=== PATIENT | female | born 1965 | race American Indian/Alaskan Native ===

== ENCOUNTER 2019-06-01 13:27 | Emergency (ER) | payer SELFPAY ==
--- NOTE | 2019-06-01 13:39 | Emergency Department Report ---
Blank Doc - Documentation Documentation: This is a 54-year-old female that presents with visual and audio hallucinations and HI. This initial assessment/diagnostic orders/clinical plan/treatment(s) is/are subject to change based on patient's health status, clinical progression and re- assessment by fellow clinical providers in the ED. Further treatment and workup at subsequent clinical providers discretion. Patient/guardians urged not to elope from the ED as their condition may be serious if not clinically assessed and managed. Initial orders include: 1- Patient sent to MAIN ED for further evaluation and treatment 2- promotions executive producer was notified to have patient be brought back [facility]. 3- RN was notified to keep patient as close range and observation until room available 4- Patient presents with substantial risk of imminent harm to self, appears to be so unable to care for his/her own physical health and safety as to create an imminently life-endangering crisis, and has committed/expressed life endangering crisis to self. Due to this and other complaints, patient is put on 1013.
[2019-06-01 14:18] LABS: Basophils # (Auto) 0.1 K/mm3 (0.0-0.1); Eosinophils # (Auto) 0.1 K/mm3 (0.0-0.4); Eosinophils % (Auto) 1.1 % (0.0-4.3); Hematocrit 43.8 % (30.3-42.9); Hemoglobin 14.6 gm/dl (10.1-14.3); Lymphocytes # (Auto) 2.1 K/mm3 (1.2-5.4); Lymphocytes % (Auto) 38.2 % (13.4-35.0); Mean Corpuscular HGB Conc 33 % (30-34); Mean Corpuscular Volume 94 fl (79-97); Monocytes # (Auto) 0.3 K/mm3 (0.0-0.8); Monocytes % (Auto) 5.5 % (0.0-7.3); Platelet Count 267 K/mm3 (140-440); Red Blood Count 4.67 M/mm3 (3.65-5.03); Red Cell Distribution Width 13.8 % (13.2-15.2)
[2019-06-01 14:37] LABS: BUN/Creatinine Ratio 13; Blood Urea Nitrogen 9 mg/dL (7-17); Calcium 9.9 mg/dL (8.4-10.2); Hemolysis Index 15
--- NOTE | 2019-06-01 15:28 | Emergency Department Report ---
<CELINASERA - Last Filed: 06/01/19 18:44> ED Psych HPI - General Chief Complaint: Psych Stated Complaint: HEARING VOICES/ALCOHOL Time Seen by Provider: 06/01/19 13:38 - Related Data Home Medications Medication Instructions Recorded Confirmed Last Taken No Known Home Medications [No 06/01/19 06/01/19 Unknown Reported Home Medications] Allergies Allergy/AdvReac Type Severity Reaction Status Date / Time No Known Allergies Allergy Unverified 06/01/19 13:34 ED Past Medical Hx - Medications Home Medications: Home Medications Medication Instructions Recorded Confirmed Last Taken Type No Known Home Medications [No 06/01/19 06/01/19 Unknown History Reported Home Medications] ED Medical Decision Making - Lab Data Result diagrams: 06/01/19 14:00 06/01/19 14:00 - Medical Decision Making UDS screen +marijuana. Suspected contaminated urine sample. However, will preemptively cover for UTI. Cephalexin ordered. Mrs. Ortega is medically clear for psychiatric care. ED Disposition Clinical Impression: Acute psychosis, Schizophrenia, Alcohol abuse, Medical clearance for psychiatric admission, Urine WBC increased Disposition: DC/TX-65 PSY HOSP/PSY UNIT Is pt being admited?: No Does the pt Need Aspirin: No Condition: Stable <MALVIN RON - Last Filed: 06/02/19 15:37> ED Psych HPI - General Source: patient Mode of arrival: Ambulatory Limitations: No Limitations - History of Present Illness Initial Comments: 54-year-old female with a past medical history schizophrenia and hypertension presents to the hospital complaints of auditory or visual hallucinations and daily alcohol use. Patient is not currently on any medication. She admits to beer intake daily I states she does have tremors at times. Last intake was this morning. Patient states he smokes marijuana but denies other drug use. Patient denies suicidal ideation when questioned. 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 Patient complains of mild epigastric discomfort withou t nausea, vomiting, melena, or hematochezia. ED Review of Systems ROS: Stated complaint: HEARING VOICES/ALCOHOL Other details as noted in HPI Comment: All other systems reviewed and negative ED Past Medical Hx - Past Medical History Previous Medical History?: Yes Hx Hypertension: Yes Hx Psychiatric Treatment: Yes (schizophrenia) - Surgical History Past Surgical History?: No - Social History Smoking Status: Current Every Day Smoker Substance Use Type: Alcohol ED Physical Exam - General Limitations: No Limitations - Other Other exam information: General: No limitations, patient is alert in no acute distress Head exam: Atraumatic, normocephalic Eyes exam: pupils equal reactive to light, extraocular movements intact ENT: Moist mucous membrane, normal oropharynx Neck exam: Normal inspection, full range of motion, no meningismus nontender Respiratory exam: Clear to auscultation bilateral, no wheezes, rales, crackles Cardiovascular: Normal rate and rhythm, normal heart sounds Abdomen: Soft, nondistended, mild epigastric tenderness, with normal bowel sounds, no rebound, or guarding Extremity: Full range of motion normal inspection no deformity Back: Normal Inspection, full range of motion, no tenderness Neurologic: Alert, oriented x3, cranial nerves intact, no motor or sensory deficit Psychiatric: normal affect, normal mood Skin: Warm, dry, intact ED Course Vital Signs 06/01/19 06/01/19 06/02/19 13:37 19:34 00:00 Temperature 98.5 F 98.2 F 98.1 F Pulse Rate 81 62 71 Respiratory 20 18 18 Rate Blood Pressure 121/80 Blood Pressure 144/91 129/83 [Left] O2 Sat by Pulse 97 100 100 Oximetry 06/02/19 08:00 Temperature 98.3 F Pulse Rate 60 Respiratory 16 Rate Blood Pressure Blood Pressure 129/76 [Left] O2 Sat by Pulse 99 Oximetry ED Medical Decision Making - Lab Data Result diagrams: 06/01/19 14:00 06/01/19 14:00 Lab Results 06/01/19 06/01/19 06/01/19 Range/Units 14:00 14:00 14:00 WBC 5.5 (4.5-11.0) K/mm3 RBC 4.67 (3.65-5.03) M/mm3 Hgb 14.6 H (10.1-14.3) gm/dl Hct 43.8 H (30.3-42.9) % MCV 94 (79-97) fl MCH 31 (28-32) pg MCHC 33 (30-34) % RDW 13.8 (13.2-15.2) % Plt Count 267 (140-440) K/mm3 Lymph % (Auto) 38.2 H (13.4-35.0) % [place] % (Auto) 5.5 (0.0-7.3) % Eos % (Auto) 1.1 (0.0-4.3) % Baso % (Auto) 1.0 (0.0-1.8) % Lymph # 2.1 (1.2-5.4) K/mm3 [place] # 0.3 (0.0-0.8) K/mm3 Eos # 0.1 (0.0-0.4) K/mm3 Baso # 0.1 (0.0-0.1) K/mm3 Seg Neutrophils % 54.2 (40.0-70.0) % Seg Neutrophils # 3.0 (1.8-7.7) K/mm3 Sodium 140 (137-145) mmol/L Potassium 4.2 (3.6-5.0) mmol/L Chloride 102.4 (98-107) mmol/L Carbon Dioxide 26 (22-30) mmol/L Anion Gap 16 mmol/L BUN 9 (7-17) mg/dL Creatinine 0.7 (0.7-1.2) mg/dL Estimated GFR > 60 ml/min BUN/Creatinine Ratio 13 % Glucose 98 (65-100) mg/dL Calcium 9.9 (8.4-10.2) mg/dL Salicylates < 0.3 L (2.8-20.0) mg/dL Acetaminophen (10.0-30.0) ug/mL Plasma/Serum Alcohol (0-0.07) % 06/01/19 06/01/19 Range/Units 14:00 14:00 WBC (4.5-11.0) K/mm3 RBC (3.65-5.03) M/mm3 Hgb (10.1-14.3) gm/dl Hct (30.3-42.9) % MCV (79-97) fl MCH (28-32) pg MCHC (30-34) % RDW (13.2-15.2) % Plt Count (140-440) K/mm3 Lymph % (Auto) (13.4-35.0) % [place] % (Auto) (0.0-7.3) % Eos % (Auto) (0.0-4.3) % Baso % (Auto) (0.0-1.8) % Lymph # (1.2-5.4) K/mm3 [place] # (0.0-0.8) K/mm3 Eos # (0.0-0.4) K/mm3 Baso # (0.0-0.1) K/mm3 Seg Neutrophils % (40.0-70.0) % Seg Neutrophils # (1.8-7.7) K/mm3 Sodium (137-145) mmol/L Potassium (3.6-5.0) mmol/L Chloride (98-107) mmol/L Carbon Dioxide (22-30) mmol/L Anion Gap mmol/L BUN (7-17) mg/dL Creatinine (0.7-1.2) mg/dL Estimated GFR ml/min BUN/Creatinine Ratio % Glucose (65-100) mg/dL Calcium (8.4-10.2) mg/dL Salicylates (2.8-20.0) mg/dL Acetaminophen < 5.0 L (10.0-30.0) ug/mL Plasma/Serum Alcohol 0.04 (0-0.07) % - Medical Decision Making Mental health consultation. 1013 and transfer forms signed. Awaiting urine production the medical clearance. Inpatient may be isolated for mental health for possible inpatient treatment and/or initiation of management in the ED. - Differential Diagnosis suicidal, homicidal, psychosis, drug abuse, alcohol abuse Critical Care Time: No Critical care attestation.: If time is entered above; I have spent that time in minutes in the direct care of this critically ill patient, excluding procedure time. ED Disposition Is pt being admited?: No Does the pt Need Aspirin: No Time of Disposition: 15:37
[2019-06-01 17:15] LABS: Amphetamine Screen,Urine PRESUMPTIVE NEGATIVE; Benzodiazepines Screen,Urine PRESUMPTIVE NEGATIVE; Bilirubin,Urine NEG (Negative); Blood,Urine NEG (Negative); Cocaine Screen,Urine PRESUMPTIVE NEGATIVE; Color,Urine Yellow (Yellow); Methadone Screen,Urine PRESUMPTIVE NEGATIVE; Mucus,Urine FEW /HPF; Opiate Screen,Urine PRESUMPTIVE NEGATIVE; Protein,Urine <15 mg/dL mg/dL (Negative)
[2019-06-01 17:57] LABS: Cannabinoid Screen,Urine PRESUMPTIVE POSITIVE
[2019-06-01] MEDS: KEFLEX PO SCH (22:18)
--- NOTE | 2019-06-02 09:32 | Consultation ---
History of Present Illness - Reason for Consult Consult date: 06/02/19 Reason for consult: Mental Health Evaluation Requesting physician: MALVIN RON - Chief Complaint Chief complaint: '"I created V[employer]'" - History of Present Psychiatric Illness 54 y.o. AA female who presented to the ER for acute psychosis. Today the patient was calm, but tangent during the assessment. She stated that she was brought in to the ER by her daughter. 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 She stated that [facility] is aware of what is going on as well. She stated that the TV tells her things about [employer]. She appeared to be responding to some type of stimuli throughout the interview. She denies SI/HI's and VH's. She denies erratic sleep and a poor appetite. She would not confirm or deny having a drinking issue (etoh) when asked. She was positive for marijuana with a blood alcohol level of 0.04. Medications and Allergies Allergies Allergy/AdvReac Type Severity Reaction Status Date / Time No Known Allergies Allergy Unverified 06/01/19 13:34 Home Medications Medication Instructions Recorded Confirmed Last Taken Type No Known Home Medications [No 06/01/19 06/01/19 Unknown History Reported Home Medications] Active Meds: Active Medications Cephalexin (Keflex) 500 mg PO QID LAURA Last Admin: 06/01/19 22:18 Dose: 500 mg Documented by: Past psychiatric history - Past Medical History Past Medical History: No medical history Past Surgical History: No surgical history - past Psychiatric treatment and history psychiatric treatment history: Seen at [facility] per the patient. Denies a fam psy hx. - Social History Social history: lives with family Mental Status Exam - Vital signs Last Vital Signs Temp 98.1 F 06/02/19 00:00 Pulse 71 06/02/19 00:00 Resp 18 06/02/19 00:00 BP 129/83 06/02/19 00:00 Pulse Ox 100 06/02/19 00:00 - Exam Narrative exam: MSE: Appearance: calm, cooperative Behavior: regular eye contact Speech: regular rate and low tone Mood: "okay" Affect: congruent to mood Thought Process: tangential Thought Content: denies SI/HI's and VH's, delusional, ideas of reference Motor Activity: lying in bed Cognition: A/O x 3 Insight: poor Judgment: poor Results Result Diagrams: 06/01/19 14:00 06/01/19 14:00 Abnormal lab results 06/01/19 06/01/19 06/01/19 Range/Units 10:38 14:00 14:00 Hgb 14.6 H (10.1-14.3) gm/dl Hct 43.8 H (30.3-42.9) % Lymph % (Auto) 38.2 H (13.4-35.0) % Urine WBC (Auto) 14.0 H (0.0-6.0) /HPF Salicylates < 0.3 L (2.8-20.0) mg/dL Acetaminophen (10.0-30.0) ug/mL 06/01/19 Range/Units 14:00 Hgb (10.1-14.3) gm/dl Hct (30.3-42.9) % Lymph % (Auto) (13.4-35.0) % Urine WBC (Auto) (0.0-6.0) /HPF Salicylates (2.8-20.0) mg/dL Acetaminophen < 5.0 L (10.0-30.0) ug/mL All other labs normal. Assessment and Plan Assessment and plan: Impression: Unspecified Psychosis. Cannabis Use DO. Today the patient was calm and cooperative during the assessment. DDx: Schizophrenia, Substance Induced Psychosis, Alcohol Use DO Recommendations/Plan: Continue 1013 and start Zyprexa 5 mg PO HS for psychosis. Attempted to discuss possible metabolic side effects of Zyprexa with the patient. Baseline Lipid Panel/A1C ordered for the AM. Dipso: The patient was referred to inpatient psy services. Will staff with Dr Isaias Goodwin.
[2019-06-02] MEDS ORDERED: IBUPROFEN PO ONE (09:54)
[2019-06-02] MEDS: KEFLEX PO SCH ×4 (10:48→22:25)
[2019-06-02] MEDS ORDERED: TYLENOL PO ONE (14:30)
[2019-06-03 06:11] LABS: Chol/HDL Ratio 2.24 %
[2019-06-03] MEDS: KEFLEX PO SCH ×4 (10:09→22:14)
--- NOTE | 2019-06-03 14:14 | Progress Note ---
Subjective - Reason for Consult Consult date: 06/03/19 Reason for consult: Psychiatric Follow-up Evaluation - Chief Complaint Chief complaint: " Still mad at the radio people" Patient is a 54 y.o. AA female who presented to the ER for acute psychosis. Tonish yepez the patient is calm, but tangent during the assessment. She stated that she was brought in to the ER by her daughter. 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 Patient continues to have paranoid delusions. 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 Psychosis is evident. She endorses AH's and paranoid delusions. She denies SI/HI's. Reports medication compliance. No side effects noted/reported. Mental Status Exam - Vital signs Last Vital Signs Temp 97.9 F 06/03/19 07:00 Pulse 51 L 06/03/19 07:00 Resp 18 06/03/19 07:00 BP 141/81 06/03/19 07:00 Pulse Ox 99 06/03/19 07:00 - Exam Narrative exam: Mental Status Exam Appearance: calm, cooperative Behavior: regular eye contact Speech: regular rate and low tone Mood: "still mad at the radio people" Affect: congruent to mood Thought Process: tangential Thought Content: denies SI/HI's; + A/VH's, delusional- paranoid/ ideas of reference Motor Activity: ambulatory Cognition: A/O x 3 Insight: poor Judgment: poor Assessment and Plan Impression: Unspecified Psychosis. Cannabis Use DO. Today the patient is calm and cooperative during the assessment. DDx: Schizophrenia, Substance Induced Psychosis, Alcohol Use DO Recommendations/Plan: 1. Continue 1013. 2. Increase Zyprexa 10mg PO HS for psychosis. Attempted to discuss possible metabolic side effects of Zyprexa with the patient. Baseline Lipid Panel/A1C ordered for the AM. Deposition: The patient was referred to inpatient psychiatric services. Will staff with Dr. Isaias Goodwin.
[2019-06-03] MEDS ORDERED: TYLENOL PO ONE (14:30)
[2019-06-04 02:30] VITALS: BP 142/89
--- NOTE | 2019-06-04 11:52 | Progress Note ---
Subjective - Reason for Consult Consult date: 06/04/19 Reason for consult: Psychiatry Follow-up - Chief Complaint Chief complaint: "I'm leaving today" Patient is a 54 y.o. AA female who presented to the ER for acute psychosis. Today the patient was calm and cooperative during the assessment. She continue think that V1013 is causing her "issues." She talked about things that was relevant to the questioned asked of her. She denies SI/HI's and VH's. She would not confirm or deny AH's. No indications of side effects from her medication. Mental Status Exam - Vital signs Last Vital Signs Temp 97.9 F 06/04/19 02:29 Pulse 54 L 06/04/19 02:29 Resp 18 06/04/19 02:29 BP 142/89 06/04/19 02:29 Pulse Ox 96 06/04/19 02:29 - Exam Narrative exam: MSE: Appearance: calm, cooperative Behavior: regular eye contact Speech: regular rate and low tone Mood: "okay" Affect: congruent to mood Thought Process: tangential Thought Content: denies SI/HI's and VH's, delusional Motor Activity: lying in bed Cognition: A/O x 3 Insight: poor Judgment: poor Assessment and Plan Impression: Unspecified Psychosis. Cannabis Use DO. Today the patient was calm and cooperative during the assessment. DDx: Schizophrenia, Substance Induced Psychosis, Alcohol Use DO Recommendations/Plan: Continue 1013 and Zyprexa 10 mg PO HS for psychosis. Attempted to discuss possible metabolic side effects of Zyprexa with the patient. Dipso: The patient was accepted at [facility] for inpatient psy services. Will staff with Dr Isaias Goodwin.
== END 2019-06-04 08:30 ==
LOC: EEVIPCON 13:27 → ED 13:27
DX: F23 Brief psychotic disorder (principal); F10.10 Alcohol abuse, uncomplicated; I10 Essential (primary) hypertension; F17.200 Nicotine dependence, unspecified, uncomplicated
CPT/HCPCS: 36415; 80048; 80061; 80307; 80320; 81001; 83036; 85025; 87086; G0480

== ENCOUNTER 2021-04-10 09:45 | Emergency (ER) | payer SELFPAY ==
[2021-04-10] MEDS ORDERED: cloNIDine 0.1 MG TAB PO ONE (10:29)
--- NOTE | 2021-04-10 10:33 | Emergency Department Report ---
ED Chest Pain HPI - General Chief Complaint: Chest Pain Stated Complaint: CHEST PAIN Time Seen by Provider: 04/10/21 10:24 Source: patient Mode of arrival: Ambulatory Limitations: No Limitations - History of Present Illness Initial Comments: Patient is 55-year-old female with history of hypertension and schizophrenia. Patient presented to the ER complaining of substernal chest pain started 2 days ago. Patient stated that the pain started after she started coughing and having runny nose and congestion. Patient stated that she took NyQuil for the cough. Patient described her pain as aching with no radiation. No similar symptoms before. Pain increased with coughing. Patient denied any fever or chills. No nausea or vomiting. MD Complaint: chest pain -: days(s) Onset: other (After coughing.) Pain Location: substernal Pain Radiation: none Severity: moderate Severity scale (0 -10): 9 Quality: aching - Related Data Previous Rx's Medication Instructions Recorded Last Taken Type amLODIPine [Norvasc] 5 mg PO DAILY #30 tab 04/10/21 Unknown Rx Allergies Allergy/AdvReac Type Severity Reaction Status Date / Time No Known Allergies Allergy Unverified 06/01/19 13:34 Heart Score - HEART Score History: Slightly suspicious EKG: Normal Age: 45-65 Risk factors: 1-2 risk factors Troponin: < normal limit HEART Score: 2 - EKG Read Time Time EKG Completed: 09:58 EKG Read Time: 10:01 ED Review of Systems ROS: Stated complaint: CHEST PAIN Other details as noted in HPI Comment: All other systems reviewed and negative Constitutional: denies: chills, fever ENT: congestion Respiratory: cough. denies: shortness of breath, wheezing Cardiovascular: chest pain. denies: palpitations, dyspnea on exertion, orthopnea Gastrointestinal: denies: abdominal pain, nausea, vomiting Musculoskeletal: denies: back pain ED Past Medical Hx - Past Medical History Previous Medical History?: Yes Hx Hypertension: Yes Hx Psychiatric Treatment: Yes (schizophrenia) - Surgical History Past Surgical History?: Yes Additional Surgical History: right eye - Social History Smoking Status: Current Every Day Smoker Substance Use Type: Alcohol - Medications Home Medications: Home Medications Medication Instructions Recorded Confirmed Last Taken Type amLODIPine [Norvasc] 5 mg PO DAILY #30 tab 04/10/21 Unknown Rx ED Physical Exam - General Limitations: No Limitations General appearance: alert, in no apparent distress - Head Head exam: Present: atraumatic, normocephalic, normal inspection - Eye Eye exam: Present: normal appearance, PERRL - ENT ENT exam: Present: normal exam, normal orophraynx, mucous membranes moist - Neck Neck exam: Present: normal inspection, full ROM. Absent: tenderness, meningismus - Respiratory Respiratory exam: Present: normal lung sounds bilaterally - Cardiovascular Cardiovascular Exam: Present: regular rate, normal rhythm, normal heart sounds - GI/Abdominal GI/Abdominal exam: Present: soft, normal bowel sounds. Absent: distended, tenderness, guarding, rebound, rigid, organomegaly, mass, bruit, pulsatile mass, hernia - Extremities Exam Extremities exam: Present: normal inspection, full ROM, normal capillary refill. Absent: tenderness - Back Exam Back exam: Present: normal inspection, full ROM. Absent: CVA tenderness (R), CVA tenderness (L) - Neurological Exam Neurological exam: Present: alert, oriented X3, CN II-XII intact, normal gait, reflexes normal. Absent: motor sensory deficit - Psychiatric Psychiatric exam: Present: normal mood. Absent: suicidal ideation - Skin Skin exam: Present: warm, intact, normal color ED Course Vital Signs 04/10/21 04/10/21 04/10/21 09:55 10:29 10:31 Temperature 98.9 F Pulse Rate 72 54 L Respiratory 18 15 Rate Blood Pressure Blood Pressure 160/104 [Right] O2 Sat by Pulse 99 100 100 Oximetry 04/10/21 04/10/21 04/10/21 10:32 10:35 10:36 Temperature Pulse Rate 55 L Respiratory 18 16 Rate Blood Pressure 152/76 Blood Pressure 152/76 [Right] O2 Sat by Pulse 100 Oximetry 04/10/21 04/10/21 04/10/21 10:37 10:39 10:41 Temperature Pulse Rate 64 65 61 Respiratory 10 L 14 16 Rate Blood Pressure 152/76 152/76 152/76 Blood Pressure [Right] O2 Sat by Pulse 100 100 100 Oximetry 04/10/21 04/10/21 04/10/21 10:43 10:45 10:47 Temperature Pulse Rate 63 71 56 L Respiratory 14 16 13 Rate Blood Pressure 152/76 152/76 152/76 Blood Pressure [Right] O2 Sat by Pulse 100 99 100 Oximetry 04/10/21 04/10/21 04/10/21 10:49 10:51 10:53 Temperature Pulse Rate 63 54 L 52 L Respiratory 13 13 18 Rate Blood Pressure 152/76 152/76 152/76 Blood Pressure [Right] O2 Sat by Pulse 98 98 99 Oximetry 04/10/21 04/10/21 04/10/21 10:55 10:57 10:59 Temperature Pulse Rate 51 L 59 L 54 L Respiratory 15 19 13 Rate Blood Pressure 152/76 152/76 152/76 Blood Pressure [Right] O2 Sat by Pulse 100 99 98 Oximetry 04/10/21 04/10/21 04/10/21 11:01 11:03 11:05 Temperature Pulse Rate 50 L 52 L 55 L Respiratory 9 L 12 18 Rate Blood Pressure 152/78 152/78 152/78 Blood Pressure [Right] O2 Sat by Pulse 100 99 98 Oximetry 04/10/21 04/10/21 04/10/21 11:07 11:09 11:11 Temperature Pulse Rate 58 L 54 L 52 L Respiratory 18 18 17 Rate Blood Pressure 152/78 152/78 152/78 Blood Pressure [Right] O2 Sat by Pulse 99 98 99 Oximetry 04/10/21 04/10/21 04/10/21 11:13 11:15 11:17 Temperature Pulse Rate 55 L 49 L 50 L Respiratory 15 16 17 Rate Blood Pressure 152/78 152/78 152/78 Blood Pressure [Right] O2 Sat by Pulse 98 99 99 Oximetry 04/10/21 04/10/21 04/10/21 11:19 11:21 11:23 Temperature Pulse Rate 52 L 50 L 50 L Respiratory 19 18 14 Rate Blood Pressure 152/78 152/78 152/78 Blood Pressure [Right] O2 Sat by Pulse 99 99 99 Oximetry 04/10/21 04/10/21 04/10/21 11:25 11:27 11:29 Temperature Pulse Rate 60 53 L 50 L Respiratory 17 19 18 Rate Blood Pressure 152/78 152/78 152/78 Blood Pressure [Right] O2 Sat by Pulse 99 98 99 Oximetry 04/10/21 04/10/21 04/10/21 11:31 11:32 11:33 Temperature Pulse Rate 58 L 58 L 52 L Respiratory 10 L 12 18 Rate Blood Pressure 152/78 151/73 151/73 Blood Pressure [Right] O2 Sat by Pulse 100 100 100 Oximetry 0604/10/21 04/10/21 11:35 11:37 11:39 Temperature Pulse Rate 62 51 L 64 Respiratory 15 18 12 Rate Blood Pressure 151/73 151/73 151/73 Blood Pressure [Right] O2 Sat by Pulse 100 99 98 Oximetry 04/10/21 04/10/21 04/10/21 11:41 11:43 11:45 Temperature Pulse Rate 54 L 54 L 52 L Respiratory 12 19 17 Rate Blood Pressure 151/73 151/73 151/73 Blood Pressure [Right] O2 Sat by Pulse 100 99 99 Oximetry 04/10/21 04/10/21 04/10/21 11:47 11:49 11:50 Temperature Pulse Rate 75 48 L 69 Respiratory 21 14 17 Rate Blood Pressure 151/73 151/73 151/73 Blood Pressure [Right] O2 Sat by Pulse 98 100 99 Oximetry 04/10/21 04/10/21 04/10/21 11:51 11:53 11:55 Temperature Pulse Rate 65 72 65 Respiratory 15 19 15 Rate Blood Pressure 151/73 151/73 151/73 Blood Pressure [Right] O2 Sat by Pulse 100 97 100 Oximetry 04/10/21 04/10/21 04/10/21 11:56 11:57 11:59 Temperature Pulse Rate 52 L 52 L 49 L Respiratory 11 L 9 L 17 Rate Blood Pressure 151/73 151/73 151/73 Blood Pressure [Right] O2 Sat by Pulse 100 100 100 Oximetry 04/10/21 04/10/21 04/10/21 12:01 12:03 12:05 Temperature Pulse Rate 48 L 48 L 48 L Respiratory 15 18 15 Rate Blood Pressure 166/79 166/79 166/79 Blood Pressure [Right] O2 Sat by Pulse 100 100 100 Oximetry 04/10/21 04/10/21 04/10/21 12:07 12:09 12:11 Temperature Pulse Rate 48 L 49 L 47 L Respiratory 16 16 15 Rate Blood Pressure 166/79 166/79 166/79 Blood Pressure [Right] O2 Sat by Pulse 99 100 100 Oximetry 04/10/21 04/10/21 04/10/21 12:13 12:15 12:17 Temperature Pulse Rate 47 L 48 L 52 L Respiratory 16 18 17 Rate Blood Pressure 166/79 166/79 166/79 Blood Pressure [Right] O2 Sat by Pulse 100 100 100 Oximetry 06/04/10/21 04/10/21 12:19 12:21 12:23 Temperature Pulse Rate 46 L 47 L 47 L Respiratory 12 11 L 18 Rate Blood Pressure 166/79 166/79 151/73 Blood Pressure [Right] O2 Sat by Pulse 100 100 100 Oximetry 04/10/21 04/10/21 04/10/21 12:25 12:27 12:29 Temperature Pulse Rate 47 L 66 76 Respiratory 11 L 16 11 L Rate Blood Pressure 151/73 151/73 151/73 Blood Pressure [Right] O2 Sat by Pulse 100 94 96 Oximetry 04/10/21 04/10/21 04/10/21 12:31 13:01 13:32 Temperature Pulse Rate 74 48 L 61 Respiratory 18 17 20 Rate Blood Pressure 173/81 161/81 Blood Pressure [Right] O2 Sat by Pulse 99 98 99 Oximetry ED Medical Decision Making - Lab Data Result diagrams: 04/10/21 10:56 04/10/21 10:56 - EKG Data -: EKG Interpreted by Ga EKG shows normal: sinus rhythm Rate: normal - EKG Data Interpretation: no acute changes - Radiology Data Radiology results: report reviewed - Medical Decision Making Patient is 55-year-old female with history of hypertension and schizophrenia. Patient presented to the ER complaining of substernal chest pain started 2 days ago. Patient stated that the pain started after she started coughing and having runny nose and congestion. Patient stated that she took NyQuil for the cough. Patient described her pain as aching with no radiation. No similar symptoms before. Pain increased with coughing. Patient denied any fever or chills. No nausea or vomiting. EKG is unremarkable. Chest x-ray is negative for acute finding. Labs reviewed and is unremarkable including a negative troponin x2. Heart score is 2. Patien t chest pain completely resolved after normalization of her blood pressure. I started patient on Norvasc 5 g daily and strongly advised the patient to follow- up with her primary care physician for outpatient cardiac work-up and to return to the ER if she develop any new symptoms. Critical care attestation.: If time is entered above; I have spent that time in minutes in the direct care of this critically ill patient, excluding procedure time. ED Disposition Clinical Impression: Acute chest pain, Malignant hypertension Disposition: - TO HOME OR SELFCARE Is pt being admited?: No Condition: Stable Instructions: Chest Pain (ED), Hypertension (ED), Nonspecific Chest Pain, Adult, Hypertension, Adult Prescriptions: amLODIPine [Norvasc] 5 mg PO DAILY #30 tab Referrals: PRIMARY CARE,MD [Primary Care Provider] - 3-[address] [facility] [Provider Group] - 3-5 Days
--- NOTE | 2021-04-10 11:30 | XRay Report ---
CHEST 1 VIEW 04/10/2021 10:34 AM INDICATION / CLINICAL INFORMATION: Chest Pain. COMPARISON: None available. FINDINGS: SUPPORT DEVICES: None. HEART / MEDIASTINUM: No significant abnormality. LUNGS / PLEURA: No significant pulmonary abnormality. No significant pleural effusion. No pneumothora x. ADDITIONAL FINDINGS: Mild degenerative changes are seen along the shoulders. IMPRESSION: 1. No acute abnormality of the chest. Signer Name: Randy Acosta MD Signed: 04/10/2021 11:25 AM Workstation Name: [id number]
[2021-04-10 11:33] LABS: Eosinophils # (Auto) 0.2 K/mm3 (0.0-0.4); Eosinophils % (Auto) 3.1 % (0.0-4.3); Hematocrit 42.3 % (30.3-42.9); Hemoglobin 13.4 gm/dl (10.1-14.3); Lymphocytes % (Auto) 40.9 % (13.4-35.0); Mean Corpuscular HGB Conc 32 % (30-34); Mean Corpuscular Volume 94 fl (79-97); Monocytes # (Auto) 0.4 K/mm3 (0.0-0.8); Monocytes % (Auto) 9.3 % (0.0-7.3); Platelet Count 242 K/mm3 (140-440)
[2021-04-10 11:54] LABS: Blood Urea Nitrogen 11 mg/dL (7-17); Calcium 9.9 mg/dL (8.4-10.2); Hemolysis Index 2
[2021-04-10 11:56] LABS: BUN/Creatinine Ratio 18
[2021-04-10 15:20] VITALS: BP 154/96
--- NOTE | 2021-04-12 19:06 | Electrocardiograph Report ---
[facility] Test Date: 2021-04-10 Test Time: 09:58:04 Pat Name: RIGOBERTO FAIRCHILD Department: Room: Gender: F Grades 1 Through 5 Teacher: GILL : 1965 Requested By: CHIKA ENAMORADO Order Number: [id number] Reading MD: Triston Souza Measurements Intervals [place] Rate: 63 P: 74 WI: 165 QRS: 46 QRSD: 78 T: 58 QT: 405 QTc: 415 Interpretive Statements Sinus rhythm No previous ECG available for comparison Electronically Signed On 04-12-2021 19:06:12 EDT by Triston Souza
== END 2021-04-10 15:20 | disposition home or self-care (01) ==
LOC: ED 09:45
DX: R07.89 Other chest pain (principal); I10 Essential (primary) hypertension; F20.9 Schizophrenia, unspecified; F17.200 Nicotine dependence, unspecified, uncomplicated; Z72.89 Other problems related to lifestyle
CPT/HCPCS: 36415; 71045; 80048; 84484; 85025; 93005; 99283

== ENCOUNTER 2021-05-30 08:26 | Emergency (ER) | payer SELFPAY ==
[2021-05-30 10:27] VITALS: BP 151/81
--- NOTE | 2021-05-30 10:55 | Emergency Department Report ---
Blank Doc - Documentation Documentation: 56-year-old female that presents with left sided mouth pain and stated that in [facility] several months ago was seen by a doctor and "placed a wire with cheap to the left side of ear and into the mouth" for monitoring her. 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 Patient stated "they are trying to take my identity away" Patient stated has history of schizophrenia but not been taking her medication for the past 5 years. Patient is hyperverbal. Denies any SI or HI. Denies audio or visual hallucinations. 1- This is a initial triage assessment/medical screening only. Full assessment and work-up will be completed once the patient is in proper hospital gown, ED bed and in a private room setting. This initial assessment/diagnostic orders/clinical plan/ treatment(s) is/are subject to change based on pt's health status, clinical progression and re-assessment by fellow clinical providers in the ED. Further treatment and workup at subsequent clinical providers discretion. Patient/guardians urged not to elope from ED as their condition may be serious if not clinically assessed and managed. 2-psych protocol initiated. 3 RN notified that the patient brought back GAIL.
[2021-05-30 11:40] LABS: Basophils # (Auto) 0.1 K/mm3 (0.0-0.1); Basophils % (Auto) 1.2 % (0.0-1.8); Eosinophils # (Auto) 0.1 K/mm3 (0.0-0.4); Eosinophils % (Auto) 0.9 % (0.0-4.3); Hematocrit 41.6 % (30.3-42.9); Hemoglobin 13.6 gm/dl (10.1-14.3); Lymphocytes % (Auto) 33.6 % (13.4-35.0); Mean Corpuscular HGB Conc 33 % (30-34); Mean Corpuscular Volume 95 fl (79-97); Monocytes # (Auto) 0.6 K/mm3 (0.0-0.8); Monocytes % (Auto) 9.7 % (0.0-7.3); Platelet Count 243 K/mm3 (140-440); Red Blood Count 4.38 M/mm3 (3.65-5.03); Red Cell Distribution Width 13.6 % (13.2-15.2)
[2021-05-30 12:02] LABS: Blood Urea Nitrogen 12 mg/dL (7-17); Calcium 10.1 mg/dL (8.4-10.2); Hemolysis Index 3
[2021-05-30 12:07] LABS: BUN/Creatinine Ratio 20
--- NOTE | 2021-05-30 16:36 | Emergency Department Report ---
ED General Adult HPI - General Chief complaint: Dental/Oral Stated complaint: MOUTH Time Seen by Provider: 05/30/21 10:44 Source: patient Mode of arrival: Ambulatory Limitations: No Limitations - History of Present Illness Initial comments: The patient presents to the emergency department with a chief complaint of mouth pain that started a couple days ago. Patient denies a fever or difficulty swallowing. Patient states this initially started after brushing her teeth. -: Sudden Radiation: non-radiation Severity scale (0 -10): 3 Quality: aching Consistency: constant Improves with: none Worsens with: none Associated Symptoms: denies other symptoms Treatments Prior to Arrival: none - Related Data Previous Rx's Medication Instructions Recorded Last Taken Type amLODIPine [Norvasc] 5 mg PO DAILY #30 tab 04/10/21 Unknown Rx Penicillin V Potassium 500 mg PO TID #30 tablet 05/30/21 Unknown Rx traMADoL [Ultram] 50 mg PO Q6HR PRN #15 tablet 05/30/21 Unknown Rx Allergies Allergy/AdvReac Type Severity Reaction Status Date / Time No Known Allergies Allergy Unverified 06/01/19 13:34 ED Review of Systems ROS: Stated complaint: MOUTH Other details as noted in HPI Constitutional: denies: chills, fever Eyes: denies: eye pain, eye discharge, vision change ENT: other (mouth pain). denies: ear pain, throat pain Respiratory: denies: cough, shortness of breath, wheezing Cardiovascular: denies: chest pain, palpitations Endocrine: no symptoms reported Gastrointestinal: denies: abdominal pain, nausea, diarrhea Genitourinary: denies: urgency, dysuria, discharge Musculoskeletal: denies: back pain, joint swelling, arthralgia Skin: denies: rash, lesions Neurological: denies: headache, weakness, paresthesias Psychiatric: denies: anxiety, depression Hematological/Lymphatic: denies: easy bleeding, easy bruising ED Past Medical Hx - Past Medical History Previous Medical History?: Yes Hx Hypertension: Yes Hx Psychiatric Treatment: Yes (schizophrenia) - Surgical History Past Surgical History?: Yes Additional Surgical History: right eye - Social History Smoking Status: Current Every Day Smoker Substance Use Type: Alcohol - Medications Home Medications: Home Medications Medication Instructions Recorded Confirmed Last Taken Type amLODIPine [Norvasc] 5 mg PO DAILY #30 tab 04/10/21 Unknown Rx Penicillin V Potassium 500 mg PO TID #30 tablet 05/30/21 Unknown Rx traMADoL [Ultram] 50 mg PO Q6HR PRN #15 tablet 05/30/21 Unknown Rx ED Physical Exam - General Limitations: No Limitations General appearance: alert, in no apparent distress - Head Head exam: Present: atraumatic, normocephalic - Eye Eye exam: Present: normal appearance - ENT ENT exam: Present: mucous membranes moist, other (intraoral cellulitis ) - Neck Neck exam: Present: normal inspection - Respiratory Respiratory exam: Present: normal lung sounds bilaterally. Absent: respiratory distress - Cardiovascular Cardiovascular Exam: Present: regular rate, normal rhythm. Absent: systolic murmur, diastolic murmur, rubs, gallop - GI/Abdominal GI/Abdominal exam: Present: soft, normal bowel sounds. Absent: distended, tenderness - Extremities Exam Extremities exam: Present: normal inspection - Back Exam Back exam: Present: normal inspection - Neurological Exam Neurological exam: Present: alert, oriented X3, CN II-XII intact. Absent: motor sensory deficit - Psychiatric Psychiatric exam: Present: normal affect, normal mood - Skin Skin exam: Present: warm, dry, intact, normal color. Absent: rash ED Course Vital Signs 05/30/21 10:25 Temperature 98.2 F Pulse Rate 43 L Respiratory 16 Rate Blood Pressure 151/81 [Right] O2 Sat by Pulse 100 Oximetry ED Medical Decision Making - Lab Data Result diagrams: 05/30/21 11:05 05/30/21 11:05 Lab Results 05/30/21 05/30/21 05/30/21 Range/Units 11:05 11:05 11:05 WBC (4.5-11.0) K/mm3 RBC (3.65-5.03) M/mm3 Hgb (10.1-14.3) gm/dl Hct (30.3-42.9) % MCV (79-97) fl MCH (28-32) pg MCHC (30-34) % RDW (13.2-15.2) % Plt Count (140-440) K/mm3 Lymph % (Auto) (13.4-35.0) % [place] % (Auto) (0.0-7.3) % Eos % (Auto) (0.0-4.3) % Baso % (Auto) (0.0-1.8) % Lymph # (Auto) (1.2-5.4) K/mm3 [place] # (Auto) (0.0-0.8) K/mm3 Eos # (Auto) (0.0-0.4) K/mm3 Baso # (Auto) (0.0-0.1) K/mm3 Seg Neutrophils % (40.0-70.0) % Seg Neutrophils # (1.8-7.7) K/mm3 Sodium 143 (137-145) mmol/L Potassium 4.7 (3.6-5.0) mmol/L Chloride 105.7 (98-107) mmol/L Carbon Dioxide 27 (22-30) mmol/L Anion Gap 15 mmol/L BUN 12 (7-17) mg/dL Creatinine 0.6 (0.6-1.2) mg/dL Estimated GFR > 60 ml/min BUN/Creatinine Ratio 20 % Glucose 90 (65-100) mg/dL Calcium 10.1 (8.4-10.2) mg/dL Salicylates < 0.3 L (2.8-20.0) mg/dL Acetaminophen 5.0 L (10.0-30.0) ug/mL Plasma/Serum Alcohol (0-0.07) % 05/30/21 05/30/21 Range/Units 11:05 11:05 WBC 6.1 (4.5-11.0) K/mm3 RBC 4.38 (3.65-5.03) M/mm3 Hgb 13.6 (10.1-14.3) gm/dl Hct 41.6 (30.3-42.9) % MCV 95 (79-97) fl MCH 31 (28-32) pg MCHC 33 (30-34) % RDW 13.6 (13.2-15.2) % Plt Count 243 (140-440) K/mm3 Lymph % (Auto) 33.6 (13.4-35.0) % [place] % (Auto) 9.7 H (0.0-7.3) % Eos % (Auto) 0.9 (0.0-4.3) % Baso % (Auto) 1.2 (0.0-1.8) % Lymph # (Auto) 2.0 (1.2-5.4) K/mm3 [place] # (Auto) 0.6 (0.0-0.8) K/mm3 Eos # (Auto) 0.1 (0.0-0.4) K/mm3 Baso # (Auto) 0.1 (0.0-0.1) K/mm3 Seg Neutrophils % 54.6 (40.0-70.0) % Seg Neutrophils # 3.3 (1.8-7.7) K/mm3 Sodium (137-145) mmol/L Potassium (3.6-5.0) mmol/L Chloride (98-107) mmol/L Carbon Dioxide (22-30) mmol/L Anion Gap mmol/L BUN (7-17) mg/dL Creatinine (0.6-1.2) mg/dL Estimated GFR ml/min BUN/Creatinine Ratio % Glucose (65-100) mg/dL Calcium (8.4-10.2) mg/dL Salicylates (2.8-20.0) mg/dL Acetaminophen (10.0-30.0) ug/mL Plasma/Serum Alcohol < 0.01 (0-0.07) % - Medical Decision Making Patient is slightly tangential on exam but does not have pressured speech Patient states she has a history of schizophrenia She denies homicidal suicidal ideations She denies auditory visual hallucinations. Critical care attestation.: If time is entered above; I have spent that time in minutes in the direct care of this critically ill patient, excluding procedure time. ED Disposition Clinical Impression: Cellulitis of intraoral region Disposition: DC-01 TO HOME OR SELFCARE Is pt being admited?: No Does the pt Need Aspirin: No Condition: Stable Instructions: Cellulitis, Adult Additional Instructions: Return if worse Referrals: PRIMARY CARE, [Primary Care Provider] - 3-5 Days [facility] [Outside] - 3-5 Days Time of Disposition: 16:42
== END 2021-05-30 17:00 | disposition home or self-care (01) ==
LOC: ED 08:26
DX: K12.2 Cellulitis and abscess of mouth (principal); I10 Essential (primary) hypertension; F20.9 Schizophrenia, unspecified; F17.200 Nicotine dependence, unspecified, uncomplicated
CPT/HCPCS: 36415; 80048; 80320; 85025; 99283; G0480

== ENCOUNTER 2021-11-20 18:08 | Emergency (ER) | payer SELFPAY ==
[2021-11-20 19:01] VITALS: BP 158/92
--- NOTE | 2021-11-20 19:35 | Emergency Department Report ---
ED ENT HPI - General Chief complaint: Dental/Oral Stated complaint: MOUTH BLEEDING Time Seen by Provider: 11/20/21 19:28 Source: patient Mode of arrival: Ambulatory Limitations: No Limitations - History of Present Illness Initial comments: Patient presents with bleeding from the tongue. Patient had a biopsy done of a lesion on her tongue on . She states that she snuck a pack of cigarettes on that Saturday and started having some bleeding from the wound. That seemed to stop. She sucked on some ice cubes. Yesterday and today, she had eaten some spicy food. She believes that her blood pressure went up. It started bleeding again. She states that it is oozing. She does not know the pathology results from the lesion as of yet. She has no other complaint. She is not bleeding from other sites. She is not anticoagulated. She does not feel dizzy or lightheaded. She has no chest pain or shortness of breath. - Related Data Previous Rx's Medication Instructions Recorded Last Taken Type amLODIPine [Norvasc] 5 mg PO DAILY #30 tab 04/10/21 Unknown Rx Penicillin V Potassium 500 mg PO TID #30 tablet 05/30/21 Unknown Rx traMADoL [Ultram] 50 mg PO Q6HR PRN #15 tablet 05/30/21 Unknown Rx Allergies Allergy/AdvReac Type Severity Reaction Status Date / Time Penicillins Allergy Severe Anaphylaxis Verified 11/20/21 18:58 ED Dental HPI - General Chief complaint: Dental/Oral Stated complaint: MOUTH BLEEDING Time Seen by Provider: 11/20/21 19:28 Source: patient Mode of arrival: Ambulatory Limitations: No Limitations - Related Data Previous Rx's Medication Instructions Recorded Last Taken Type amLODIPine [Norvasc] 5 mg PO DAILY #30 tab 04/10/21 Unknown Rx Penicillin V Potassium 500 mg PO TID #30 tablet 05/30/21 Unknown Rx traMADoL [Ultram] 50 mg PO Q6HR PRN #15 tablet 05/30/21 Unknown Rx Allergies Allergy/AdvReac Type Severity Reaction Status Date / Time Penicillins Allergy Severe Anaphylaxis Verified 11/20/21 18:58 ED Review of Systems ROS: Stated complaint: MOUTH BLEEDING Other details as noted in HPI Comment: All other systems reviewed and negative Constitutional: denies: fever Eyes: denies: eye pain ENT: as per HPI Respiratory: denies: cough Cardiovascular: denies: chest pain Gastrointestinal: denies: hematemesis Genitourinary: denies: hematuria Skin: denies: rash Neurological: denies: headache Hematological/Lymphatic: denies: easy bruising ED Past Medical Hx - Past Medical History Previous Medical History?: Yes Hx Hypertension: Yes Hx Psychiatric Treatment: Yes (schizophrenia) - Surgical History Additional Surgical History: right eye - Family History Family history: hypertension - Social History Smoking Status: Current Every Day Smoker (We discussed tobacco cessation x3 minutes) Substance Use Type: Alcohol - Medications Home Medications: Home Medications Medication Instructions Recorded Confirmed Last Taken Type amLODIPine [Norvasc] 5 mg PO DAILY #30 tab 04/10/21 Unknown Rx Penicillin V Potassium 500 mg PO TID #30 tablet 05/30/21 Unknown Rx traMADoL [Ultram] 50 mg PO Q6HR PRN #15 tablet 05/30/21 Unknown Rx ED Physical Exam - General Limitations: No Limitations, Other (Pulse ox noted and normal) General appearance: alert, in no apparent distress - Head Head exam: Present: atraumatic, normocephalic - Eye Eye exam: Present: normal appearance, EOMI - ENT ENT exam: Present: normal external ear exam, other (Patient has a wound to the left tip of the tongue in which case tissue is missing consistent with a biopsy and tissue removal. There is blood clot noted in this area. There is no active bleeding or bright red blood noted. There is no other oropharyngeal trauma noted.) - Neck Neck exam: Present: normal inspection - Respiratory Respiratory exam: Present: normal lung sounds bilaterally. Absent: respiratory distress - Cardiovascular Cardiovascular Exam: Present: regular rate, normal rhythm - GI/Abdominal GI/Abdominal exam: Present: soft - Extremities Exam Extremities exam: Present: normal capillary refill - Back Exam Back exam: Present: full ROM - Neurological Exam Neurological exam: Present: alert, oriented X3, normal gait. Absent: motor sensory deficit - Psychiatric Psychiatric exam: Present: normal affect, normal mood - Skin Skin exam: Present: warm, dry ED Course Vital Signs 11/20/21 18:55 Temperature 97.8 F Pulse Rate 68 Respiratory 14 Rate Blood Pressure 158/92 O2 Sat by Pulse 100 Oximetry - Reevaluation(s) Reevaluation #1: 11/20/21 19:34 Patient was given TXA. She was discharged. ED Medical Decision Making - Medical Decision Making Patient presented secondary to bleeding from a surgical wound. She is not tachycardic or hypotensive. I am not worried about significant blood loss. She was not having any active bleeding at this time and was not anticoagulated. I do not believe this represents any type of coagulopathy. Patient was treated symptomatically and discharged. Critical Care Time: No Critical care attestation.: If time is entered above; I have spent that time in minutes in the direct care of this critically ill patient, excluding procedure time. ED Disposition Clinical Impression: Postoperative wound hemorrhage Disposition: 01 HOME / SELF CARE / HOMELESS Is pt being admited?: No Condition: Stable Additional Instructions: Use ice. Do not eat spicy foods. Do not take aspirin. Follow-up with your surgeon. Return for problems. Referrals: PRIMARY CARE, [Referring] - 3-5 Days
[2021-11-20] MEDS ORDERED: TRANEXAMIC ACID 1,000 MG in SODIUM CHLORIDE 0.9% 100 ML IV NR (20:00)
== END 2021-11-20 20:42 | disposition home or self-care (01) ==
LOC: ED 18:08
DX: L76.22 Postprocedural hemorrhage of skin and subcutaneous tissue following other procedure (principal); Z88.0 Allergy status to penicillin; I10 Essential (primary) hypertension
CPT/HCPCS: 99282